=== PATIENT | male | born 1995 ===

== ENCOUNTER 2025-05-04 10:13 | Emergency (ER) | payer OTHER ==
[~2025-05-04] VITALS: Ht 190.5 cm; Wt 99.8 kg
[2025-05-04 10:20] VITALS: BP 134/106
[2025-05-04] MEDS ORDERED: IBUP800 PO (10:48)
== END 2025-05-04 11:07 | disposition home or self-care (01) ==
LOC: ER 10:13
DX: S16.1XXA Strain of muscle, fascia and tendon at neck level, initial encounter (principal); S60.413A Abrasion of left middle finger, initial encounter; S80.212A Abrasion, left knee, initial encounter; Z88.1 Allergy status to other antibiotic agents; V43.52XA Car driver injured in collision with other type car in traffic accident, initial encounter
CPT/HCPCS: 73130; 73562-LT; 99284-25; A9270